=== PATIENT | female | born 1930 | race Caucasian/White ===

== ENCOUNTER → 2018-02-20 | Outpatient (CLI) | payer MEDICARE, BC ==
--- NOTE | 2018-02-20 11:26 | BD ---
EXAMINATION TYPE: Axial Bone Density DATE OF EXAM: 02/20/2018 COMPARISON: 12.09.2015 DEXA bone scan. CLINICAL HISTORY: 87 YR OLD FEMALE....ICD-10 CODE: M81.0 OSTEOPOROSIS Height: 58 Weight: 136 FRAX RISK QUESTIONS: Family History (Parent hip fracture): YES RISK FACTORS HISTORY OF: Family History of Osteoporosis: YES, MOTHER WITH HIP FX Active: NO, USES WHEELIE WALKER, ELDERLY Postmenopausal woman: YES AT 52 YRS OLD Lost more than 2 inches in height since high school: YES Frequent falls: ELDERLY, UNSTEADY Poor Health: ELDERLY POOR HISTORIAN, SPEECH IMPEDIMENT... MEDICATIONS: Prednisone or other steroids: FOR EYES ONLY, PREDNISONE FOR PAIN How Long: MANY YRS Additional Medications: GABAPENTIN, REFLUX MEDS, STATIN FOR CHOLESTEROL, CALCIUM WITH D, PAIN MEDS AN D NSAIDS Additional History: ELDERLY, UNSTEADY, WHEELIE WALKER, HYPERTENSION, ARTHRITIS, EXAM MEASUREMENTS: Bone mineral densitometry was performed using the [employer] System. Bone mineral density as measured about the Lumbar spine is: ----- L1-L4(G/cm2): 1.250 T Score Values are as follows: ----- L1: -0.8 ----- L2: 0.3 ----- L3: 1.2 ----- L4: 1.2 ----- L1-L4: 0.6 Bone mineral density has: Increased 3.1% since study of: 12.09.2015 Bone mineral density about the R hip (g/cm2): 0.808 Bone mineral density about the L hip (g/cm2): 0.810 T Score values are as follows: -----R Neck: -2.2 -----L Neck: -2.1 -----R Total: -1.6 -----L Total: -1.6 Bone mineral density has: Increased 2.5% since study of: 12.09.2015 FRAX%s: THERE IS A 44.4% CHANCE FOR A MAJOR OSTEOPOROTIC FX AND A 33.1% FOR HIP.....PROBABILITY OF FX IN 10 YRS TIME IMPRESSION: Osteopenia (T Score between -2.5 and -1 )remains present both hips. There remains slightly increased risk of fracture and the patient may be considered for treatment. Re-Screen 2-5 years. NOTE: T-SCORE=SD OF THE YOUNG ADULT MEAN.
--- NOTE | 2018-02-23 13:40 | MM ---
Reason for exam: screening (asymptomatic). Last mammogram was performed 1 year and 1 month ago. History: Patient is postmenopausal and is nulliparous. Excisional biopsy of the left breast. Excisional biopsy of the right breast. MG 3D Screening Mammo W/Cad Bilateral CC and MLO view(s) were taken. Prior study comparison: January 11, 2017, bilateral MG 3d screening mammo w/cad. December 09, 2015, bilateral MG 3d screening mammo w/cad. There are scattered fibroglandular densities. There is a stable architectural distortion in the right breast consistent with previous biopsy. There are benign-appearing bilateral breast calcifications. Chronic nodularity in the right breast. No significant changes when compared with prior studies. ASSESSMENT: Benign, BI-RAD 2 RECOMMENDATION: Routine screening mammogram of both breasts in 1 year.
== END | disposition home or self-care (01) ==
LOC: RADMAMWWP 09:37
PROVIDERS: ATTEND Family Medicine
DX: Z12.31 Encounter for screening mammogram for malignant neoplasm of breast (principal); M85.851 Other specified disorders of bone density and structure, right thigh; M85.852 Other specified disorders of bone density and structure, left thigh
CPT/HCPCS: 77063; 77067; 77080

== ENCOUNTER → 2019-03-11 | Outpatient (CLI) | payer MEDICARE, BC ==
--- NOTE | 2019-03-12 10:24 | MM ---
Reason for exam: screening (asymptomatic). Last mammogram was performed 1 year and 1 month ago. History: Patient is postmenopausal and is nulliparous. Excisional biopsy of the left breast. Excisional biopsy of the right breast. Physical Findings: A clinical breast exam by your physician is recommended on an annual basis and results should be correlated with mammographic findings. MG 3D Screening Mammo W/Cad Bilateral CC and MLO view(s) were taken. Prior study comparison: February 20, 2018, bilateral MG 3d screening mammo w/cad. January 11, 2017, bilateral MG 3d screening mammo w/cad. There are scattered fibroglandular densities. There is a stable right lower outer quadrant posterior depth mass. Benign appearing bilateral calcifications. No suspicious abnormality. Post surgical change bilaterally. No significant changes when compared with prior studies. ASSESSMENT: Benign, BI-RAD 2 RECOMMENDATION: Routine screening mammogram of both breasts in 1 year.
== END | disposition home or self-care (01) ==
LOC: RADMAMWWP 10:45
PROVIDERS: ATTEND Family Medicine
DX: Z12.31 Encounter for screening mammogram for malignant neoplasm of breast (principal)
CPT/HCPCS: 77063; 77067